=== PATIENT | female | born 1940 | race Caucasian/White ===

== ENCOUNTER 2018-10-19 11:50 | Inpatient (IN) | payer OTHER ==
[~2018-10-19] VITALS: Ht 157.5 cm; Wt 49.0 kg
[2018-10-19 11:50] VITALS: BP_SYST 147
--- NOTE | 2018-10-19 11:50 | NUR ---
PATIENT SITTING UP ON BED. AAOx4. RESPIRATIONS EVEN AND UNABORED. NO SOB OBSERVED. SPEAKING FULL SENTENCES. ALL LUNG LAZARO CLEAR UPON AUSCULTATION. DENIES OF ANY CHEST PAIN. PT BIB SQ#64. PT WITH C/O NAUSEA AND VOMITING x2 DAYS WHICH WORSENED THIS AM WITH SOME SHORTNESS OF BREATH. PT STATES THAT SHE WAS PRESCRIBED ARICEPT 2 DAYS AGO BY HER PCP. PT ALSO STATES, "THE NAUSEA AND VOMITING CAUSES ME TO HAVE SOME SHORTNESS OF BREATH." PT WAS GIVEN 4MG OF ZOFRAN EN ROUTE TO [facility]. PATIENT VERBALIZED SOME RELIEF FROM NAUSEA. NO ACTIVE VOMITING AT THIS TIME. REST, RELAXATION, AND SLOW DEEP BREATHING ENCOURAGED. DR. KIMBALL MADE AWARE OF PT CONDITION AND CHIEF COMPLAINT. WILL CONTINUE TO MONITOR. AWAITING MD ORDERS.
--- NOTE | 2018-10-19 11:50 | NUR ---
Placed in room 2. Placed on alarm security or surveillance monitor, blood pressure machine and pulse oximeter. To gown for exam. Side rails up.
--- NOTE | 2018-10-19 12:05 | NUR ---
ER Dr. KIMBALL at bedside examining patient.
--- NOTE | 2018-10-19 12:10 | NUR ---
PT'S DAUGHTER AT BEDSIDE FOR SUPPORT.
[2018-10-19] MEDS ORDERED: NACL 0.9% 1,000 ML IV ONE ×2 (12:20→17:00)
[2018-10-19] MEDS ORDERED: ONDANSETRON HCL 4 MG/2 ML VIAL IVP ONE ×2 (12:30→18:15)
[2018-10-19 12:52] LABS: ANION GAP 7 (5-15); CALCIUM 9.5 mg/dL (8.4-11.0); CHLORIDE 102 mmol/L (98-107); CREATININE 0.71 mg/dL (0.55-1.30); GLUCOSE 160 mg/dL (70-99); HEMOGLOBIN 14.6 g/dL (12.0-16.0); POTASSIUM 3.6 mmol/L (3.5-5.1); RED BLOOD CELL COUNT(AUTO) 4.63 MIL/uL (4.2-6.2); SODIUM SERUM 136 mmol/L (136-145); UREA NITROGEN, BLOOD 17 mg/dL (8-21); WHITE BLOOD COUNT (AUTO) 10.8 K/uL (4.8-10.8)
[2018-10-19 12:53] LABS: BASOPHILS % (AUTO) 0.3 % (0.0-2.0); EOSINOPHILS % (AUTO) 0.4 % (0.0-4.0); HEMATOCRIT 43.4 % (36-48); LYMPHOCYTES # (AUTO) 1.7 K/uL (1.0-5.5); LYMPHOCYTES % (AUTO) 16.1 % (20.5-51.5); MEAN CORPUSCULAR HEMOGLOBIN 32 pg (27-31); MEAN CORPUSCULAR HGB CONC 34 % (32-36); MEAN CORPUSCULAR VOLUME 94 fL (79.0-98.0); MONOCYTES # (AUTO) 0.6 K/uL (0.0-1.0); MONOCYTES % (AUTO) 5.5 % (1.7-9.3); NEUTROPHILS # (AUTO) 8.4 K/uL (1.8-7.7); NEUTROPHILS % (AUTO) 77.7 % (40.0-70.0); PLATELET COUNT (AUTO) 218 K/uL (130-430); RED CELL DISTRIBUTION WIDTH 13.4 % (9.0-15.0)
[2018-10-19 12:58] LABS: PROTHROMBIN TIME 10.1 SECS (9.5-12.5)
[2018-10-19 13:00] LABS: ALANINE AMINOTRANSFERASE 23 U/L (12-78); ALBUMIN 3.8 g/dL (3.4-4.8); ASPARTATE AMINOTRANSFERASE 23 U/L (10-37); LIPASE 222 U/L (73-393); TOTAL BILIRUBIN 0.5 mg/dL (0.0-1.0)
--- NOTE | 2018-10-19 13:30 | NUR ---
Patient resting quietly. No acute distress noted. Vital signs within normal range. PATIENT VERBALIZED RELIEF FROM NAUSEA. NO EPISODES OF VOMITING NOTED. WILL CONTINUE TO MONITOR.
[2018-10-19 13:58] LABS: BILIRUBIN,URINE NEGATIVE (NEGATIVE); BLOOD, URINE NEGATIVE (NEGATIVE); CLARITY/URINE CLEAR (CLEAR); COLOR,URINE YELLOW (YELLOW); GLUCOSE,URINE NEGATIVE (NEGATIVE); KETONES,URINE 1+ (NEGATIVE); LEUKOCYTE ESTERASE ,URINE NEGATIVE (NEGATIVE); NITRITE, URINE NEGATIVE (NEGATIVE); PH,URINE 7.5 (5.0-8.0); PROTEIN URINE NEGATIVE (NEGATIVE); UROBILINOGEN,URINE 0.2 (0.2-1.0)
[2018-10-19] MEDS ORDERED: MORPHINE 4 MG/ML INJ. SYRINGE IVP ONE (14:30)
--- NOTE | 2018-10-19 14:30 | NUR ---
Patient resting quietly. No acute distress noted.
--- NOTE | 2018-10-19 14:39 | NUR ---
MORPHINE ADMINISTERED FOR ABDOMINAL PAIN = 8. TOLERATED WELL. PLEASE SEE EMAR FOR DETAILS.
--- NOTE | 2018-10-19 15:10 | NUR ---
PATIENT VERBALIZED RELIEF FROM ABDOMINAL PAIN. PAIN = 0/10. NO OBJECTIVE S/SX OF PAIN OBSERVED. WILL CONTINUE TO MONITOR.
--- NOTE | 2018-10-19 15:30 | NUR ---
Patient resting quietly. No acute distress noted.
--- NOTE | 2018-10-19 15:52 | NUR ---
Patient transported to radiology via GURNEY, accompanied by BIOSTATISTICS PROFESSOR.
--- NOTE | 2018-10-19 16:00 | NUR ---
Returned from radiology. PATIENT IN GOOD CONDITION. NO ACUTE DISTRESS.
--- NOTE | 2018-10-19 17:00 | NUR ---
Patient resting quietly. No acute distress noted.
--- NOTE | 2018-10-19 17:05 | NUR ---
2ND DOSE OF NS 1,000ML STARTED. TOLERATING WELL. PLEASE SEE EMAR FOR DETAILS.
--- NOTE | 2018-10-19 17:30 | NUR ---
PATIENT AMBULATED TO THE BATHROOM WITH STAND BY ASSIST. PATIENT NOTED WITH A STEADY GAIT. PATIENT RETURNED TO BED WITH STAND BY ASSIST.
--- NOTE | 2018-10-19 18:00 | NUR ---
Patient resting quietly. No acute distress noted.
--- NOTE | 2018-10-19 18:30 | NUR ---
ZOFRAN ADMINISTERED PER MD ORDERS FOR NAUSEA. TOLERATED WELL. PLEASE SEE EMAR FOR DETAILS.
[2018-10-19] MEDS ORDERED: DONE10TA44 PO (18:37)
--- NOTE | 2018-10-19 18:40 | NUR ---
RIGHT WRIST IV ACCESS NOTED WITH SLIGHT PAIN. IV DC'D. TOLERATED WELL.
--- NOTE | 2018-10-19 18:40 | NUR ---
Patient will be admitted to care of DR. TURPIN. Admitted to MED SURG unit. Will go to room 122 A. Belongings list completed. Summary report printed. Report will be given at bedside.
--- NOTE | 2018-10-19 19:03 | NUR ---
ADMISSION NOTE Received patient from ER via gurney. Patient admitted with diagnosis of SOB/ VOMITING. Patient is awake, alert, oriented X 4. Patient oriented to hospital room, call light, toileting, pain management and safety-teach back done. Patient informed that DEJA will be HER nurse and that their room number is 122A. Call light within reach.
[2018-10-19 19:06] VITALS: BP_SYST 118
[2018-10-19 19:17] VITALS: BP_SYST 127
[2018-10-19] MEDS: D5NS 1,000 ML IV SCH (19:40)
--- NOTE | 2018-10-19 19:40 | NUR ---
OPENING NOTES RECEIVED PATIENT IN BED FROM ER AAO X4. BREATHING UNLABORED ON ROOM AIR. PATIENT REMAINS NAUSEATED. HOB ELEVATED. DENIES ABDOMINAL PAIN. STARTED ON IVF ORDERED. LFA IV LINE INTACT. PLAN OF CARE REVIEWED WITH PATIENT. VITAL SIGNS STABLE/ CALL LIGHT WITH IN EASY REACH. BED IN LOWEST LOCKED POSITION.
[2018-10-19] MEDS ORDERED: ONDANSETRON HCL 4 MG/2 ML VIAL IVP PRN (20:00)
--- NOTE | 2018-10-19 22:00 | NUR ---
POST VOID SCAN POST VOID BLADDER SCAN DONE PER DR. CUMMINS= 44 ML. PER MD CALL HIM IF MORE THAN 100 ML.
--- NOTE | 2018-10-20 00:30 | NUR ---
ROUNDS PATIENT RESTING IN BED. IVF INFUSING. VITAL SIGNS STABLE. CALL LIGHT WITH IN REACH.
[2018-10-20 01:14] VITALS: BP_SYST 106
--- NOTE | 2018-10-20 03:00 | NUR ---
ROUNDS PATIENT RESTING IN BED. NO DISTRESS NOTED. CALL LIGHT WITH IN REACH. BED ALARM ON.
--- NOTE | 2018-10-20 05:00 | NUR ---
OOB ASSISTED PATIENT OUT OF BED TO RESTROOM AND BACK TO BED. DENIES ANY PAIN.
--- NOTE | 2018-10-20 06:45 | NUR ---
CLOSING NOTES PATIENT RESTING IN BED AWAKE. DENIES ABDOMINAL PAIN. NO FURTHER EPISODE OF NAUSEA. IVF INFUSING ORDERED. PATIENT NEEDS ATTENDED. CALL LIGHT WITH IN EASY REACH. BED IN LOWEST LOCKED POSITION.
--- NOTE | 2018-10-20 07:30 | NUR ---
INITIAL NOTE RECEIVED PT IN BED, NO S/S OF DISTRESS OR SOB NOTED, PT HAS NO C/O PAIN AT THIS TIME, PT IN STABLE CONDITION, PT AAOX4, VERBAL. IV CATHETER PATENT, NO SIGNS OF INFECTION OR INFILTRATION NOTED, RUNNING IV FLUIDS ORDERED. BED AT LOWEST POSITION, CALL LIGHT WITHIN REACH, WILL CONTINUE TO MONITOR PT FOR ANY CHANGES, FALL AND SAFETY PRECAUTIONS IN PLACE. Addendum: 10/20/18 at 0802 by Nicolasa Lamar RN PT HAS NO C/O NAUSEA OR VOMITING
--- NOTE | 2018-10-20 07:55 | NUR ---
MD ROUNDS DR JOSÉ MIGUEL MANN, AWARE OF PATIENT'S CONDITION, NEW ORDERS WRITTEN.
[2018-10-20 08:07] VITALS: BP_SYST 101
[2018-10-20] MEDS: D5NS 1,000 ML IV SCH (08:42)
[2018-10-20] MEDS ORDERED: ONDA4TAB5 PO (08:58)
[2018-10-20] MEDS ORDERED: PRO40 PO (08:58)
[2018-10-20] MEDS ORDERED: PANTOPRAZOLE SODIUM 40 MG/VIAL (PROTONIX) IVP SCH (09:00)
[2018-10-20 10:28] VITALS: BP_SYST 104
--- NOTE | 2018-10-20 10:48 | NUR ---
D/C Patient Patient given medication reconciliation form and D/C instructions. Exit Care provided. Patient verbalized understanding. MD discussed with patient the results and treatment provided. Ambulatory with steady gait for discharge to home. Patient in stable condition, ID band removed. IV catheter removed, intact and dressing applied, no active bleeding. Rx of protonix and zofran given. Patient educated on pain management. All belongings sent with patient.
--- NOTE | 2018-10-31 11:52 | NUR ---
DISCHARGE FOLLOW UP PHONE CALL: AUTOMATION SOFTWARE ENGINEER and FLAME DEGREASER attempted to contact pt @ [phone] and dtr Latricia @ [phone] on 10/25, 10/27 and 10/31 and left messages to call back. No further follow up call needed at this time.
== END 2018-10-20 10:47 | disposition home or self-care (01) | DRG 392 ==
LOC: SED 11:50 → SMU 18:35
PROVIDERS: ADMIT Internal Medicine Hospice and Palliative Medicine; ATTEND Internal Medicine Hospice and Palliative Medicine
DX: A08.4 Viral intestinal infection, unspecified (principal); F03.90 Unspecified dementia, unspecified severity, without behavioral disturbance, psychotic disturbance, mood disturbance, and anxiety; B19.20 Unspecified viral hepatitis C without hepatic coma; K57.90 Diverticulosis of intestine, part unspecified, without perforation or abscess without bleeding; Z88.0 Allergy status to penicillin
CPT/HCPCS: 36415; 71045; 80053; 81003; 83036; 83690-TC; 84484; 85025; 85610-TC; 96361; 96374; 96375; 96376; 99285; C9113; J2270; J2405; J7042